=== PATIENT | female | born 1980 | race Caucasian/White ===

== ENCOUNTER 2017-08-04 06:39 | Day surgery (SDC) | payer OTHER ==
[~2017-08-04] VITALS: Ht 170.2 cm; Wt 51.4 kg
[~2017-08-04 06:39] MED LIST: SODIUM CHLORIDE 0.9% 1,000 ML IV ONE
[2017-08-04] MEDS ORDERED: SODIUM CHLORIDE 0.9% 1,000 ML IV ONE (07:00)
[2017-08-04] MEDS ORDERED: LORazepam 2 MG/ML VIAL IVP PRN (07:00)
[2017-08-04] MEDS ORDERED: VANCOMYCIN HCL 1 GM/D5% WATER 200 ML IV ONE (07:00)
[2017-08-04] MEDS ORDERED: IODI1GRA PO (07:07)
[2017-08-04] MEDS ORDERED: BEE POLLEN PO (07:07)
[2017-08-04] MEDS ORDERED: [UNRECOGNIZED DRUG - OTHER] PO (07:07)
[2017-08-04] MEDS ORDERED: TRACE MINERALS PO (07:07)
[2017-08-04] MEDS ORDERED: ASCORBIC ACID PO (07:07)
[2017-08-04] MEDS ORDERED: MAGN250T2 PO (07:07)
[2017-08-04] MEDS ORDERED: BEEF LIVER PO ×2 (07:07→07:10)
[2017-08-04] MEDS ORDERED: [UNRECOGNIZED DRUG - OTHER] PO (07:07)
[2017-08-04] MEDS ORDERED: TUMERIC PO (07:07)
[2017-08-04] MEDS ORDERED: [UNRECOGNIZED DRUG - OTHER] PO (07:07)
[2017-08-04] MEDS ORDERED: ASCO500 PO (07:07)
[2017-08-04] MEDS ORDERED: [UNRECOGNIZED DRUG - CODE] PO (07:07)
[2017-08-04] MEDS ORDERED: [UNRECOGNIZED DRUG - OTHER] PO (07:07)
[2017-08-04] MEDS ORDERED: [UNRECOGNIZED DRUG - OTHER] PO (07:07)
[2017-08-04] MEDS ORDERED: BLACK SEED OIL PO (07:07)
[2017-08-04 07:18] LABS: BASOPHILS # (AUTO) 0.01 K/uL (0.00-0.20); BASOPHILS % (AUTO) 0.2 % (0.0-2.0); EOSINOPHILS % (AUTO) 0.05 % (1.0-6.0); HEMATOCRIT 33.2 % (36-46); HEMOGLOBIN 11.1 g/dL (12.0-16.0); LYMPHOCYTES # (AUTO) 0.7 K/uL (1.0-4.8); LYMPHOCYTES % (AUTO) 18.1 % (22.0-44.0); MEAN CORPUSCULAR HEMOGLOBIN 29.8 pg (26.0-34.0); MEAN CORPUSCULAR HGB CONC 33.5 G/dL (31.0-37.0); MEAN CORPUSCULAR VOLUME 89 fL (80-100); MONOCYTES # (AUTO) 0.2 K/uL (0.1-1.0); MONOCYTES % (AUTO) 5.9 % (2.0-9.0); NEUTROPHILS % (AUTO) 75.8 % (40.0-70.0); PLATELET COUNT (AUTO) 165 K/uL (150-450); RED BLOOD CELL COUNT(AUTO) 3.74 MIL/uL (4.00-5.20); RED CELL DISTRIBUTION WIDTH 14.4 % (11.5-14.5)
[2017-08-04 07:34] LABS: ALANINE AMINOTRANSFERASE 37 U/L (12-78); ALBUMIN 4.3 g/dL (3.4-5.0); ANION GAP 8 mmol/L (8-16); ASPARTATE AMINOTRANSFERASE 10 U/L (15-37); BILIRUBIN,TOTAL 0.6 mg/dL (0.1-1.0); CALCIUM, TOTAL 8.8 mg/dL (8.8-10.5); CARBON DIOXIDE 26 mmol/L (22-29); CHLORIDE 104 mmol/L (98-107); CREATININE 0.79 mg/dL (0.60-1.30); GLOMERULAR FILTR. RATE CALC > 60 mL/min (>60); POTASSIUM 3.4 mmol/L (3.5-5.1); SODIUM SERUM 138 mmol/L (136-145); TOTAL PROTEIN, SERUM 7.1 g/dL (6.4-8.2); UREA NITROGEN, BLOOD 11 mg/dL (7-18)
[2017-08-04] MEDS ORDERED: FentaNYL CITRATE-PF 100 MCG/2 ML VIAL ONE (08:52)
[2017-08-04] MEDS ORDERED: MIDAZOLAM HCL 2 MG/2 ML VIAL ONE (08:52)
[2017-08-04] MEDS ORDERED: FentaNYL CITRATE-PF 100 MCG/2 ML VIAL IVP ONE (09:40)
[2017-08-04] MEDS ORDERED: MIDAZOLAM HCL 2 MG/2 ML VIAL IVP ONE (09:40)
[2017-08-04] MEDS ORDERED: HYDROmorphone HCL 2 MG TABLET PO ONE ×2 (10:30→10:45)
[2017-08-04] MEDS ORDERED: HYDROmorphone 2 MG/ML SYRINGE IM ONE ×2 (10:30→10:45)
[2017-08-04] MEDS ORDERED: SODIUM CHLORIDE 0.9% 1,000 ML IV SCH (10:34)
[2017-08-04] MEDS ORDERED: HYDROmorphone 2 MG/ML SYRINGE ONE (10:36)
[2017-08-04] MEDS ORDERED: OxyCODONE HCL/ACETAMINOPHEN 5-325 MG TABLET ONE (10:37)
[2017-08-04] MEDS ORDERED: HYDROmorphone 2 MG/ML SYRINGE IVP PRN (10:45)
[2017-08-04] MEDS ORDERED: OxyCODONE HCL/ACETAMINOPHEN 5-325 MG TABLET PO PRN ×2 (10:45)
[2017-08-04] MEDS ORDERED: OxyCODONE HCL/ACETAMINOPHEN 5-325 MG TABLET PO ONE (10:45)
[2017-08-04] MEDS ORDERED: PROMETHAZINE HCL 25 MG/ML VIAL ONE (10:50)
[2017-08-04] MEDS ORDERED: PROMETHAZINE HCL 25 MG/ML VIAL IM ONE (11:00)
== END 2017-08-04 11:10 | disposition home or self-care (01) ==
LOC: SURGERY 06:39 → EDSTATUS 08:00 → SURGERY 11:10
PROVIDERS: ATTEND Radiology Diagnostic Radiology
DX: R22.2 Localized swelling, mass and lump, trunk (principal); Z91.040 Latex allergy status; Z91.011 Allergy to milk products; Z88.0 Allergy status to penicillin; Z91.018 Allergy to other foods; Z98.890 Other specified postprocedural states; Z85.3 Personal history of malignant neoplasm of breast
CPT/HCPCS: 19105; 36415; 80053; 84703; 85025; 99152; 99153; C2618; J1170; J2250; J2550; J3010; J3370; J7030